=== PATIENT | female | born 1930 | race Caucasian/White ===

== ENCOUNTER → 2016-03-14 | Outpatient (CLI) | payer MEDICARE, OTHER | LOC: RAD 08:15 | PROVIDERS: ATTEND Internal Medicine Medical Oncology | DX: C34.32 Malignant neoplasm of lower lobe, left bronchus or lung (principal) | CPT/HCPCS: 71260; 74160 ==

== ENCOUNTER → 2016-05-02 | Outpatient (CLI) | payer MEDICARE, OTHER | LOC: RAD 09:40 | PROVIDERS: ATTEND Internal Medicine Medical Oncology | DX: R10.9 Unspecified abdominal pain (principal); C34.32 Malignant neoplasm of lower lobe, left bronchus or lung; C78.00 Secondary malignant neoplasm of unspecified lung | CPT/HCPCS: 71260; 74160 ==

== ENCOUNTER → 2016-06-30 | Outpatient (CLI) | payer MEDICARE, OTHER | LOC: RAD 07:55 | PROVIDERS: ATTEND Internal Medicine Medical Oncology | DX: C78.00 Secondary malignant neoplasm of unspecified lung (principal); R10.9 Unspecified abdominal pain | CPT/HCPCS: 71260; 74160 ==

== ENCOUNTER → 2016-07-07 | Outpatient (CLI) | payer MEDICARE, OTHER ==
--- NOTE | 2016-07-08 08:13 | XCELERA REPORT ---
[address] [address] Lower Extremity Venous Evaluation Name: DENNIS ESPINAL Age: 86 yrs Gender: Female : 1930 Patient Status: Outpatient Patient Location: Study Date: 07/07/2016 01:43 PM Procedure: Color flow and duplex imaging bilaterally of the veins of the lower extremities as well as the Common Femoral veins. Reason For Study: BLE SWELLING Ordering Physician: JACKIE BARRERA Performed By: Sam Thomas Right Sided Venous Evaluation Unable to visualize the Peroneal vessels. Normal vessel filling wall to wall, compression and augmentation as well as Colour flow down to the infrageniculate veins. Left Sided Venous Evaluation Unable to visualize the Peroneal vessels. Normal vessel filling wall to wall, compression and augmentation as well as Colour flow down to the infrageniculate veins. Critical Findings Called in to Dr Barrera's office staff. Interpretation Summary No duplex evidence of DVT or obstruction in the bilateral lower extremities. : JACKIE BARRERA > Jarrod Castelan
== END ==
LOC: SP 13:15
PROVIDERS: ATTEND Internal Medicine Medical Oncology
DX: M79.89 Other specified soft tissue disorders (principal)
CPT/HCPCS: 93970

== ENCOUNTER → 2016-07-28 | Outpatient (CLI) | payer MEDICARE, OTHER ==
--- NOTE | 2016-07-28 10:01 | RADIOLOGY REPORT (SQ) ---
EXAM DESCRIPTION: CT CHEST WITH; CT ABD/PELVIS WITH IV ONLY COMPLETED DATE/TIME: 07/28/2016 9:01 am REASON FOR STUDY: OTHER NONSPECIFIC ABNORMAL FINDING OF LUNG FIELD (R91.8); ABD PAIN (R10.9), PELVIC AND PERINEAL PAIN (R10.2) R91.8 OTHER NONSPECIFIC ABNORMAL FINDING OF LUNG FIELD R10.9 UNSPECIFIED ABDOMINAL PAIN R10.2 PELVIC AND PERINEAL PAIN COMPARISON: CT chest abdomen pelvis 06/30/2016, 05/02/2016, 03/14/2016 CT abdomen pelvis 01/24/2016, 06/19/2015 CT chest 01/16/2016, 01/14/2016 CONTRAST TYPE AND DOSE: contrast/concentration: Isovue 370.00 mg/ml; Total Contrast Delivered: 98.0 ml; Total Saline Delivered: 72.0 ml FINDINGS: CHEST: LUNGS AND PLEURA: New lung parenchymal identified on CT 06/30/2016 are larger as follows: Left upper lobe 1.8 x 1.6 cm image 47 (was 1.6 x 1.5 cm on 06/30/2016) Left upper lobe 67 mm image 51 (was 4 to 5 mm on 06/30/2016) Right lower lobe 1.9 x 1.7 cm axial image 62 (was 9 x 7 mm on 06/30/2016). Right lower lobe 1.7 x 1.5 cm axial image 71 (was 7 x 10 mm on 06/30/2016) No pleural effusion. No pneumothorax. Minimal left upper lobe airspace disease adjacent to the left upper lobe nodule on axial image 46. HILAR AND MEDIASTINAL STRUCTURES: No identified masses or abnormal nodes. HEART AND VASCULAR STRUCTURES: No aneurysm or dissection. No central pulmonary emboli. No pericardi al effusion. HARDWARE: None. THYROID AND OTHER SOFT TISSUES: No masses. No adenopathy. BONES: No significant finding. OTHER: No other significant finding. ABDOMEN AND PELVIS: LIVER: Increase in size of liver lesions as follows: Right lobe liver 1.6 cm nodule image 14 (was 1.4 cm on 06/30/2016) Left lobe liver effect gallbladder fossa 2 x 1.8 cm (was 1.6 x 1.6 cm on 06/30/2016) SPLEEN: Normal size. No focal lesions. PANCREAS: No masses. No significant calcifications. No adjacent inflammation or peripancreatic fluid collections. Pancreatic duct not dilated. GALLBLADDER: No identified stones by CT criteria. No inflammatory changes to suggest cholecystitis. ADRENAL GLANDS: No significant masses or asymmetry. RIGHT KIDNEY AND URETER: No solid masses. No significant calcification. No hydronephrosis or hydroure ter. 1.5 cm right lower pole renal cortical cyst. LEFT KIDNEY AND URETER: No solid masses. No significant calcification. No hydronephrosis or hydrouret er. AORTA AND VESSELS: No aneurysm. No dissection. Renal arteries, SMA, celiac without stenosis. RETROPERITONEUM: No retroperitoneal adenopathy, hemorrhage or masses. BOWEL AND PERITONEAL CAVITY: No masses or inflammatory changes. No free fluid or peritoneal masses. APPENDIX: Normal. ABDOMINAL WALL: No masses. No hernias. BONES: No significant or acute findings. PELVIS: No other significant finding. Small postmenopausal female pelvic organs. Urinary bladder un remarkable. Large amount of stool in the rectum. No pelvic free fluid or adenopathy. IMPRESSION: Increase in size of index lung lesions compared to 06/30/2016 Increase in size of index liver lesions compared to 06/30/2016 TECHNICAL DOCUMENTATION: JOB ID: [id number] Quality ID # [id number]: Final reports with documentation of one or more dose reduction techniques (e.g., Au tomated exposure control, adjustment of the mA and/or kV according to patient size, use of iterative reconstruction technique) 2010 [employer]- All Rights Reserved RENAL FUNCTION: Creatinine 0.6 TECHNIQUE: CT scan of the chest performed using helical scanning technique with dynamic intravenous contrast injection. Images reviewed with lung, soft tissue and bone windows. Reconstructed coronal a nd sagittal MPR images reviewed. All images stored on PACS. CT scan of the abdomen and pelvis performed with intravenous and without oral contrastusing helical s jan technique with dynamic intravenous contrast injection. Images reviewed with lung, soft tissu e and bone windows. Reconstructed coronal and sagittal MPR images reviewed. Delayed images for eval uation of the urinary system also acquired and evaluated. All images stored on PACS. All CT scanners at this facility use dose modulation, iterative reconstruction, and/or weight based d osing when appropriate to reduce radiation dose to as low as reasonably achievable (ALARA). [facility]: Dose Right [facility]: CareDose [facility]: Dose Right [facility]: Teradose 4D [facility]: [employer] RADIATION DOSE: Up-to-date CT equipment and radiation dose reduction techniques were employed. CTDIv ol: 8.4 - 28.3 mGy. DLP: 2531 mGy-cm. . LIMITATIONS: None.
== END ==
LOC: RAD 08:02
PROVIDERS: ATTEND Internal Medicine Medical Oncology
DX: R91.8 Other nonspecific abnormal finding of lung field (principal); R10.9 Unspecified abdominal pain; R10.2 Pelvic and perineal pain; K76.9 Liver disease, unspecified
CPT/HCPCS: 71260; 74177